=== PATIENT | male | born 1935 | race Caucasian/White ===

== ENCOUNTER 2018-06-08 07:55 | Inpatient (IN) | payer MEDICARE, BC ==
[~2018-06-08] VITALS: Ht 190.5 cm; Wt 97.0 kg
[~2018-06-08 07:55] MED LIST: ALLO100 PO; ASPI325 PO; Aspirin EC81 MG PO; CLOP75 PO; LEVFLO500 PO; METO50 PO; MUPI2TO TOP; Omeprazole20 M1 PO; SULTRIDS PO; VERA240ER PO; VERAPAMIL SR240 MG PO
[2018-06-08] MEDS ORDERED: METO25 PO (09:00)
[2018-06-08 09:21] LABS: Alanine Aminotransfer (ALT/SGP 40 U/L (12-78); Albumin, Blood 2.9 g/dL (3.4-5.0); Albumin/Globulin Ratio 0.6 (0.8-1.8); Alk Phos 219 U/L (50-136); Anion Gap 7 mmol/L (6-16); Aspartate Aminotrans (AST/SGOT 47 U/L (12-37); Bilirubin, Total 1.7 mg/dL (0.1-1.0); Blood Urea Nitrogen 10 mg/dL (8-24); Bun/Creatinine Ratio 13.8 (12.0-20.0); CO2, Blood 27 mmol/L (21-32); Calcium, Blood 8.8 mg/dL (8.5-10.1); Chloride, Blood 96 mmol/L (98-108); Creatinine, Blood 0.72 mg/dL (0.60-1.20); Globulin, Blood 5.1 g/dL (2.2-4.0); Glomerular Filtration Rate >60 (60-); Glucose, Blood 89 mg/dL (70-99); Potassium, Blood 4.3 mmol/L (3.5-5.5); Sodium, Blood 130 mmol/L (136-145)
[2018-06-08 09:38] LABS: BASOPHILS ABSOLUTE AUTO 0.03 K/mm3 (0.00-0.23); BASOPHILS PERCENT AUTO 1 % (0-2); EOSINOPHILS ABSOLUTE AUTO 0.03 K/mm3 (0.00-0.68); EOSINOPHILS PERCENT AUTO 1 % (0-6); Hematocrit 39.6 % (37.0-53.0); Hemoglobin 13.5 g/dL (13.5-17.5); IMMATURE GRAN ABSOLUTE AUTO 0.02 K/mm3 (0.00-0.10); IMMATURE GRAN PERCENT AUTO 0 % (0-1); LYMPHOCYTES ABSOLUTE AUTO 0.75 K/mm3 (0.84-5.20); LYMPHOCYTES PERCENT AUTO 14 % (21-46); MONOCYTES ABSOLUTE AUTO 0.85 K/mm3 (0.16-1.47); MONOCYTES PERCENT AUTO 16 % (4-13); Mean Corpuscular HGB 34.2 pg (26.0-34.0); Mean Corpuscular HGB Conc 34.1 g/dL (31.5-36.5); Mean Corpuscular Volume 100 fL (80-100); Mean Platelet Volume 8.7 fL (9.1-12.4); NEUTROPHILS ABSOLUTE AUTO 3.76 K/mm3 (1.96-9.15); NEUTROPHILS PERCENT AUTO 69 % (41-73); Platelet Count 150 K/mm3 (150-400); RDW Coefficient Variation 13.5 % (11.7-14.2); RDW Standard Deviation 50.3 fL (35.1-46.3); Red Blood Cell Count 3.95 M/mm3 (4.30-5.90); White Blood Cell Count 5.44 K/mm3 (4.00-11.30)
[2018-06-08 15:27] LABS: Source, Urine Catheter
[2018-06-08 15:54] LABS: Bilirubin, Urine Neg (Neg); Blood, Urine 4+ (Neg); Glucose Qualitative, Urine Neg (Neg); Ketones, Urine Neg (Neg); Leukocyte Esterase, Urine 3+ (Neg); Nitrite, Urine Neg (Neg); Protein, Urine 2+ (Neg); Urobilinogen, Urine 3+ (Normal)
[2018-06-08 15:55] LABS: Appearance, Urine Cloudy (Clear); Color, Urine Yellow (P-Yellow)
[2018-06-08 15:56] LABS: White Blood Cells, Urine TNTC /hpf (0-5)
[2018-06-08 15:57] LABS: Bacteria Few /hpf; Squamous Epithelial Cells Few /hpf (Few); Transitional Epithelial Cells Few /hpf (0-Rare)
[2018-06-08 17:27] LABS: Source, Urine Catheter
[2018-06-08 18:23] LABS: Appearance, Urine Clear (Clear); Bilirubin, Urine Neg (Neg); Blood, Urine 3+ (Neg); Color, Urine Yellow (P-Yellow); Glucose Qualitative, Urine Neg (Neg); Ketones, Urine Neg (Neg); Leukocyte Esterase, Urine 3+ (Neg); Nitrite, Urine Neg (Neg); Protein, Urine 1+ (Neg); Urobilinogen, Urine 2+ (Normal)
[2018-06-08 18:40] LABS: White Blood Cells, Urine 25-50 /hpf (0-5)
[2018-06-08 18:41] LABS: Bacteria Rare /hpf; Squamous Epithelial Cells Rare /hpf (Few)
[2018-06-09 05:48] LABS: Hematocrit 35.6 % (37.0-53.0); Hemoglobin 11.8 g/dL (13.5-17.5); Mean Corpuscular HGB 33.4 pg (26.0-34.0); Mean Corpuscular HGB Conc 33.1 g/dL (31.5-36.5); Mean Corpuscular Volume 101 fL (80-100); Platelet Count 141 K/mm3 (150-400); RDW Coefficient Variation 14.2 % (11.7-14.2); RDW Standard Deviation 51.8 fL (35.1-46.3); Red Blood Cell Count 3.53 M/mm3 (4.30-5.90); White Blood Cell Count 4.89 K/mm3 (4.00-11.30)
[2018-06-09 07:48] LABS: Alanine Aminotransfer (ALT/SGP 28 U/L (12-78); Albumin, Blood 2.3 g/dL (3.4-5.0); Albumin/Globulin Ratio 0.5 (0.8-1.8); Alk Phos 177 U/L (50-136); Anion Gap 6 mmol/L (6-16); Aspartate Aminotrans (AST/SGOT 35 U/L (12-37); Bilirubin, Direct 0.5 mg/dL (0.0-0.3); Bilirubin, Indirect 0.5 mg/dL (0.1-0.7); Blood Urea Nitrogen 10 mg/dL (8-24); CO2, Blood 27 mmol/L (21-32); Calcium, Blood 7.9 mg/dL (8.5-10.1); Chloride, Blood 100 mmol/L (98-108); Creatinine, Blood 0.72 mg/dL (0.60-1.20); Globulin, Blood 4.2 g/dL (2.2-4.0); Glomerular Filtration Rate >60 (60-); Glucose, Blood 120 mg/dL (70-99); Potassium, Blood 3.9 mmol/L (3.5-5.5); Sodium, Blood 133 mmol/L (136-145); Total Protein, Blood 6.5 g/dL (6.4-8.2)
[2018-06-09] MEDS ORDERED: PROB500 PO (13:33)
[2018-06-10 05:42] LABS: Hematocrit 37.8 % (37.0-53.0); Hemoglobin 12.4 g/dL (13.5-17.5); Mean Corpuscular HGB 33.2 pg (26.0-34.0); Mean Corpuscular HGB Conc 32.8 g/dL (31.5-36.5); Mean Corpuscular Volume 101 fL (80-100); Mean Platelet Volume 8.9 fL (9.1-12.4); Platelet Count 150 K/mm3 (150-400); RDW Coefficient Variation 14.1 % (11.7-14.2); Red Blood Cell Count 3.73 M/mm3 (4.30-5.90)
[2018-06-10 05:59] LABS: Anion Gap 7 mmol/L (6-16); Blood Urea Nitrogen 13 mg/dL (8-24); CO2, Blood 25 mmol/L (21-32); Chloride, Blood 99 mmol/L (98-108); Creatinine, Blood 0.72 mg/dL (0.60-1.20); Glomerular Filtration Rate >60 (60-); Glucose, Blood 97 mg/dL (70-99); Potassium, Blood 4.6 mmol/L (3.5-5.5); Sodium, Blood 131 mmol/L (136-145); Vancomycin, Trough 15.9 ug/mL (5.0-10.0)
[2018-06-11 05:46] LABS: BASOPHILS ABSOLUTE AUTO 0.03 K/mm3 (0.00-0.23); BASOPHILS PERCENT AUTO 1 % (0-2); EOSINOPHILS PERCENT AUTO 4 % (0-6); Hematocrit 38.2 % (37.0-53.0); Hemoglobin 12.9 g/dL (13.5-17.5); IMMATURE GRAN ABSOLUTE AUTO 0.02 K/mm3 (0.00-0.10); IMMATURE GRAN PERCENT AUTO 0 % (0-1); LYMPHOCYTES ABSOLUTE AUTO 1.44 K/mm3 (0.84-5.20); LYMPHOCYTES PERCENT AUTO 30 % (21-46); MONOCYTES ABSOLUTE AUTO 0.81 K/mm3 (0.16-1.47); MONOCYTES PERCENT AUTO 17 % (4-13); Mean Corpuscular HGB 33.4 pg (26.0-34.0); Mean Corpuscular HGB Conc 33.8 g/dL (31.5-36.5); Mean Corpuscular Volume 99 fL (80-100); Mean Platelet Volume 9.1 fL (9.1-12.4); NEUTROPHILS ABSOLUTE AUTO 2.27 K/mm3 (1.96-9.15); NEUTROPHILS PERCENT AUTO 48 % (41-73); Platelet Count 156 K/mm3 (150-400); RDW Coefficient Variation 13.8 % (11.7-14.2); RDW Standard Deviation 49.9 fL (35.1-46.3); Red Blood Cell Count 3.86 M/mm3 (4.30-5.90); White Blood Cell Count 4.77 K/mm3 (4.00-11.30)
[2018-06-12 05:48] LABS: BASOPHILS ABSOLUTE AUTO 0.02 K/mm3 (0.00-0.23); BASOPHILS PERCENT AUTO 0 % (0-2); EOSINOPHILS ABSOLUTE AUTO 0.26 K/mm3 (0.00-0.68); EOSINOPHILS PERCENT AUTO 5 % (0-6); Hematocrit 37.7 % (37.0-53.0); Hemoglobin 12.7 g/dL (13.5-17.5); IMMATURE GRAN ABSOLUTE AUTO 0.01 K/mm3 (0.00-0.10); IMMATURE GRAN PERCENT AUTO 0 % (0-1); LYMPHOCYTES ABSOLUTE AUTO 1.62 K/mm3 (0.84-5.20); LYMPHOCYTES PERCENT AUTO 30 % (21-46); MONOCYTES ABSOLUTE AUTO 0.76 K/mm3 (0.16-1.47); MONOCYTES PERCENT AUTO 14 % (4-13); Mean Corpuscular HGB 33.1 pg (26.0-34.0); Mean Corpuscular HGB Conc 33.7 g/dL (31.5-36.5); Mean Corpuscular Volume 98 fL (80-100); Mean Platelet Volume 8.9 fL (9.1-12.4); NEUTROPHILS ABSOLUTE AUTO 2.66 K/mm3 (1.96-9.15); NEUTROPHILS PERCENT AUTO 50 % (41-73); Platelet Count 165 K/mm3 (150-400); RDW Coefficient Variation 13.5 % (11.7-14.2); RDW Standard Deviation 48.8 fL (35.1-46.3); Red Blood Cell Count 3.84 M/mm3 (4.30-5.90); White Blood Cell Count 5.33 K/mm3 (4.00-11.30)
[2018-06-12 06:25] LABS: Vancomycin, Trough 23.8 ug/mL (5.0-10.0)
[2018-06-12 15:26] LABS: Vancomycin, Trough 16.6 ug/mL (5.0-10.0)
[2018-06-13 05:59] LABS: BASOPHILS ABSOLUTE AUTO 0.03 K/mm3 (0.00-0.23); BASOPHILS PERCENT AUTO 1 % (0-2); EOSINOPHILS ABSOLUTE AUTO 0.43 K/mm3 (0.00-0.68); EOSINOPHILS PERCENT AUTO 9 % (0-6); Hematocrit 37.5 % (37.0-53.0); Hemoglobin 12.8 g/dL (13.5-17.5); IMMATURE GRAN ABSOLUTE AUTO 0.02 K/mm3 (0.00-0.10); IMMATURE GRAN PERCENT AUTO 0 % (0-1); LYMPHOCYTES ABSOLUTE AUTO 1.73 K/mm3 (0.84-5.20); LYMPHOCYTES PERCENT AUTO 36 % (21-46); MONOCYTES ABSOLUTE AUTO 0.74 K/mm3 (0.16-1.47); MONOCYTES PERCENT AUTO 15 % (4-13); Mean Corpuscular HGB 33.2 pg (26.0-34.0); Mean Corpuscular HGB Conc 34.1 g/dL (31.5-36.5); Mean Corpuscular Volume 97 fL (80-100); Mean Platelet Volume 8.9 fL (9.1-12.4); NEUTROPHILS ABSOLUTE AUTO 1.92 K/mm3 (1.96-9.15); NEUTROPHILS PERCENT AUTO 40 % (41-73); Platelet Count 169 K/mm3 (150-400); RDW Coefficient Variation 13.3 % (11.7-14.2); RDW Standard Deviation 47.8 fL (35.1-46.3); Red Blood Cell Count 3.85 M/mm3 (4.30-5.90); White Blood Cell Count 4.87 K/mm3 (4.00-11.30)
[2018-06-13 06:21] LABS: Anion Gap 6 mmol/L (6-16); Blood Urea Nitrogen 13 mg/dL (8-24); Bun/Creatinine Ratio 19.4 (12.0-20.0); CO2, Blood 30 mmol/L (21-32); Calcium, Blood 8.3 mg/dL (8.5-10.1); Chloride, Blood 93 mmol/L (98-108); Creatinine, Blood 0.67 mg/dL (0.60-1.20); Glomerular Filtration Rate >60 (60-); Glucose, Blood 82 mg/dL (70-99); Potassium, Blood 4.2 mmol/L (3.5-5.5); Sodium, Blood 129 mmol/L (136-145)
[2018-06-14 05:47] LABS: BASOPHILS ABSOLUTE AUTO 0.03 K/mm3 (0.00-0.23); BASOPHILS PERCENT AUTO 1 % (0-2); EOSINOPHILS ABSOLUTE AUTO 0.43 K/mm3 (0.00-0.68); EOSINOPHILS PERCENT AUTO 8 % (0-6); Hematocrit 39.1 % (37.0-53.0); IMMATURE GRAN ABSOLUTE AUTO 0.02 K/mm3 (0.00-0.10); IMMATURE GRAN PERCENT AUTO 0 % (0-1); LYMPHOCYTES ABSOLUTE AUTO 1.45 K/mm3 (0.84-5.20); LYMPHOCYTES PERCENT AUTO 26 % (21-46); MONOCYTES ABSOLUTE AUTO 0.87 K/mm3 (0.16-1.47); MONOCYTES PERCENT AUTO 15 % (4-13); Mean Corpuscular HGB 33.9 pg (26.0-34.0); Mean Corpuscular HGB Conc 33.2 g/dL (31.5-36.5); Mean Platelet Volume 8.9 fL (9.1-12.4); NEUTROPHILS ABSOLUTE AUTO 2.87 K/mm3 (1.96-9.15); NEUTROPHILS PERCENT AUTO 51 % (41-73); Platelet Count 165 K/mm3 (150-400); RDW Coefficient Variation 13.2 % (11.7-14.2); RDW Standard Deviation 49.9 fL (35.1-46.3); Red Blood Cell Count 3.84 M/mm3 (4.30-5.90); White Blood Cell Count 5.67 K/mm3 (4.00-11.30)
[2018-06-14 05:48] LABS: Mean Corpuscular Volume 102 fL (80-100)
[2018-06-14 06:08] LABS: Anion Gap 6 mmol/L (6-16); Blood Urea Nitrogen 16 mg/dL (8-24); Bun/Creatinine Ratio 16.7 (12.0-20.0); CO2, Blood 31 mmol/L (21-32); Calcium, Blood 8.7 mg/dL (8.5-10.1); Chloride, Blood 93 mmol/L (98-108); Creatinine, Blood 0.96 mg/dL (0.60-1.20); Glomerular Filtration Rate >60 (60-); Glucose, Blood 78 mg/dL (70-99); Potassium, Blood 4.3 mmol/L (3.5-5.5); Sodium, Blood 130 mmol/L (136-145)
[2018-06-14 14:12] LABS: CPK Creatine Kinase 55 U/L (39-308); Creatine Kinase MB 1.3 ng/mL (0.0-3.6); Creatine Kinase MB Index 2.4 (0.0-4.0); Troponin I <0.015 ng/mL (0.000-0.040)
[2018-06-14 15:57] LABS: Vancomycin, Trough 7.8 ug/mL (5.0-10.0)
[2018-06-15 04:47] LABS: BASOPHILS ABSOLUTE AUTO 0.04 K/mm3 (0.00-0.23); BASOPHILS PERCENT AUTO 1 % (0-2); EOSINOPHILS ABSOLUTE AUTO 0.35 K/mm3 (0.00-0.68); EOSINOPHILS PERCENT AUTO 7 % (0-6); Hemoglobin 12.5 g/dL (13.5-17.5); IMMATURE GRAN ABSOLUTE AUTO 0.03 K/mm3 (0.00-0.10); IMMATURE GRAN PERCENT AUTO 1 % (0-1); LYMPHOCYTES ABSOLUTE AUTO 1.62 K/mm3 (0.84-5.20); LYMPHOCYTES PERCENT AUTO 33 % (21-46); MONOCYTES ABSOLUTE AUTO 0.71 K/mm3 (0.16-1.47); MONOCYTES PERCENT AUTO 14 % (4-13); Mean Corpuscular HGB 33.5 pg (26.0-34.0); Mean Corpuscular HGB Conc 33.8 g/dL (31.5-36.5); Mean Platelet Volume 8.9 fL (9.1-12.4); NEUTROPHILS ABSOLUTE AUTO 2.23 K/mm3 (1.96-9.15); NEUTROPHILS PERCENT AUTO 45 % (41-73); Platelet Count 162 K/mm3 (150-400); RDW Coefficient Variation 13.3 % (11.7-14.2); RDW Standard Deviation 48.4 fL (35.1-46.3); Red Blood Cell Count 3.73 M/mm3 (4.30-5.90); White Blood Cell Count 4.98 K/mm3 (4.00-11.30)
[2018-06-15 04:48] LABS: Mean Corpuscular Volume 99 fL (80-100)
[2018-06-15 18:17] LABS: Albumin, Blood 2.2 g/dL (3.4-5.0); Anion Gap 3 mmol/L (6-16); Blood Urea Nitrogen 16 mg/dL (8-24); Bun/Creatinine Ratio 17.6 (12.0-20.0); CO2, Blood 29 mmol/L (21-32); Calcium, Blood 8.6 mg/dL (8.5-10.1); Chloride, Blood 97 mmol/L (98-108); Creatinine, Blood 0.91 mg/dL (0.60-1.20); Glomerular Filtration Rate >60 (60-); Glucose, Blood 86 mg/dL (70-99); Phosphorus, Blood 3.4 mg/dL (2.5-4.9); Potassium, Blood 4.6 mmol/L (3.5-5.5); Sodium, Blood 129 mmol/L (136-145)
[2018-06-16 05:00] LABS: Hematocrit 37.4 % (37.0-53.0); Hemoglobin 12.7 g/dL (13.5-17.5); Mean Corpuscular HGB 33.7 pg (26.0-34.0); Mean Corpuscular Volume 99 fL (80-100); Mean Platelet Volume 8.9 fL (9.1-12.4); Platelet Count 183 K/mm3 (150-400); RDW Coefficient Variation 13.2 % (11.7-14.2); RDW Standard Deviation 48.9 fL (35.1-46.3); Red Blood Cell Count 3.77 M/mm3 (4.30-5.90); White Blood Cell Count 4.59 K/mm3 (4.00-11.30)
[2018-06-16 05:21] LABS: Albumin, Blood 2.2 g/dL (3.4-5.0); Anion Gap 7 mmol/L (6-16); Blood Urea Nitrogen 16 mg/dL (8-24); Bun/Creatinine Ratio 17.2 (12.0-20.0); CO2, Blood 28 mmol/L (21-32); Calcium, Blood 8.3 mg/dL (8.5-10.1); Chloride, Blood 98 mmol/L (98-108); Creatinine, Blood 0.93 mg/dL (0.60-1.20); Glomerular Filtration Rate >60 (60-); Glucose, Blood 92 mg/dL (70-99); Phosphorus, Blood 3.6 mg/dL (2.5-4.9); Potassium, Blood 4.5 mmol/L (3.5-5.5); Sodium, Blood 133 mmol/L (136-145)
[2018-06-16] MEDS ORDERED: ACET325 PO (12:07)
[2018-06-16] MEDS ORDERED: DOCU100 PO (12:09)
[2018-06-16] MEDS ORDERED: ALBU2.5V5 NEB (12:09)
[2018-06-16] MEDS ORDERED: CEPH500 PO (12:09)
[2018-06-16] MEDS ORDERED: GABA100 PO (12:10)
[2018-06-16] MEDS ORDERED: FURO20 PO (12:10)
[2018-06-16] MEDS ORDERED: NITR.4SL SL (12:11)
[2018-06-16] MEDS ORDERED: Bactrim Ds Tab1 EACH PO (12:11)
[2018-06-16] MEDS ORDERED: TIOT18 INH (12:11)
[2018-06-16] MEDS ORDERED: TRAM50 PO (12:12)
[2018-06-16] MEDS ORDERED: SACC250C PO (12:12)
[2018-06-16] MEDS ORDERED: Micro-K10 MEQ PO (12:13)
== END 2018-06-16 16:30 | DRG 592 ==
LOC: ER 07:55 → MEDS 07:56
PROVIDERS: Emergency Medicine; Family Medicine; Internal Medicine
DX: L97.829 Non-pressure chronic ulcer of other part of left lower leg with unspecified severity (principal); I50.33 Acute on chronic diastolic (congestive) heart failure; J18.9 Pneumonia, unspecified organism; E87.1 Hypo-osmolality and hyponatremia; I73.9 Peripheral vascular disease, unspecified; L97.819 Non-pressure chronic ulcer of other part of right lower leg with unspecified severity; I48.0 Paroxysmal atrial fibrillation; K22.2 Esophageal obstruction; I10 Essential (primary) hypertension; M10.9 Gout, unspecified; J44.9 Chronic obstructive pulmonary disease, unspecified; R33.9 Retention of urine, unspecified; I11.0 Hypertensive heart disease with heart failure; Z87.891 Personal history of nicotine dependence; L97.529 Non-pressure chronic ulcer of other part of left foot with unspecified severity; L97.519 Non-pressure chronic ulcer of other part of right foot with unspecified severity; N40.1 Benign prostatic hyperplasia with lower urinary tract symptoms; R33.8 Other retention of urine
CPT/HCPCS: 36415; 71046; 73630; 80048; 80053; 80069; 80076; 80202; 81001; 82550; 82553; 83605; 83735; 83880; 84484; 85025; 85027; 85651; 87040; 87070; 87075; 87077; 87086; 87147; 87186; 87205; 93005; 93010; 93306; 93922; 94640; 94760; 96365; 97116; 97162; 97166; 97530; 97535; 99285-25; G0378; G8978; G8979; G8987; G8988; J0690; J0692; J1650; J1940; J3370; J7050

== ENCOUNTER 2018-10-01 22:29 | Inpatient (IN) | payer MEDICARE, BC ==
[~2018-10-01] VITALS: Ht 190.5 cm; Wt 99.2 kg
[~2018-10-01 22:29] MED LIST changes: +ACET325 PO; +ALBU2.5V5 NEB; +Bactrim Ds Tab1 EACH PO; +CEPH500 PO; +DOCU100 PO; +FURO20 PO; +GABA100 PO; +METO25 PO; +Micro-K10 MEQ PO; +NITR.4SL SL; +PROB500 PO; +SACC250C PO; +TIOT18 INH; +TRAM50 PO
[2018-10-02 01:11] LABS: BASOPHILS ABSOLUTE AUTO 0.03 K/mm3 (0.00-0.23); BASOPHILS PERCENT AUTO 1 % (0-2); EOSINOPHILS ABSOLUTE AUTO 0.14 K/mm3 (0.00-0.68); EOSINOPHILS PERCENT AUTO 3 % (0-6); Hematocrit 38.2 % (37.0-53.0); Hemoglobin 12.7 g/dL (13.5-17.5); IMMATURE GRAN ABSOLUTE AUTO 0.02 K/mm3 (0.00-0.10); IMMATURE GRAN PERCENT AUTO 0 % (0-1); LYMPHOCYTES ABSOLUTE AUTO 1.48 K/mm3 (0.84-5.20); LYMPHOCYTES PERCENT AUTO 33 % (21-46); MONOCYTES ABSOLUTE AUTO 0.52 K/mm3 (0.16-1.47); MONOCYTES PERCENT AUTO 12 % (4-13); Mean Corpuscular HGB 34.6 pg (26.0-34.0); Mean Corpuscular HGB Conc 33.2 g/dL (31.5-36.5); Mean Corpuscular Volume 104 fL (80-100); NEUTROPHILS ABSOLUTE AUTO 2.35 K/mm3 (1.96-9.15); NEUTROPHILS PERCENT AUTO 52 % (41-73); Platelet Count 121 K/mm3 (150-400); RDW Coefficient Variation 14.6 % (11.7-14.2); RDW Standard Deviation 56.9 fL (35.1-46.3); Red Blood Cell Count 3.67 M/mm3 (4.30-5.90); White Blood Cell Count 4.54 K/mm3 (4.00-11.30)
[2018-10-02 01:26] LABS: International Normalized Ratio 1.08; Prothrombin Time Results 11.4 Sec (9.7-11.5)
[2018-10-02 01:36] LABS: Alanine Aminotransfer (ALT/SGP 31 U/L (12-78); Albumin, Blood 3.1 g/dL (3.4-5.0); Albumin/Globulin Ratio 0.8 (0.8-1.8); Alk Phos 192 U/L (50-136); Anion Gap 10 mmol/L (6-16); Aspartate Aminotrans (AST/SGOT 33 U/L (12-37); Bilirubin, Total 0.7 mg/dL (0.1-1.0); Blood Urea Nitrogen 14 mg/dL (8-24); Bun/Creatinine Ratio 16.9 (12.0-20.0); CO2, Blood 28 mmol/L (21-32); Calcium, Blood 8.1 mg/dL (8.5-10.1); Chloride, Blood 97 mmol/L (98-108); Creatinine, Blood 0.83 mg/dL (0.60-1.20); Globulin, Blood 4.1 g/dL (2.2-4.0); Glomerular Filtration Rate >60 (60-); Glucose, Blood 85 mg/dL (70-99); Potassium, Blood 3.7 mmol/L (3.5-5.5); Sodium, Blood 135 mmol/L (136-145); Total Protein, Blood 7.2 g/dL (6.4-8.2); Troponin I <0.015 ng/mL (0.000-0.040)
[2018-10-02 05:05] LABS: Hematocrit 35.7 % (37.0-53.0); Hemoglobin 11.9 g/dL (13.5-17.5); Mean Corpuscular HGB 34.1 pg (26.0-34.0); Mean Corpuscular HGB Conc 33.3 g/dL (31.5-36.5); Mean Corpuscular Volume 102 fL (80-100); Mean Platelet Volume 8.8 fL (9.1-12.4); Platelet Count 111 K/mm3 (150-400); RDW Coefficient Variation 14.5 % (11.7-14.2); RDW Standard Deviation 54.9 fL (35.1-46.3); Red Blood Cell Count 3.49 M/mm3 (4.30-5.90); White Blood Cell Count 3.75 K/mm3 (4.00-11.30)
[2018-10-02 05:51] LABS: Alanine Aminotransfer (ALT/SGP 27 U/L (12-78); Albumin, Blood 2.8 g/dL (3.4-5.0); Albumin/Globulin Ratio 0.8 (0.8-1.8); Alk Phos 173 U/L (50-136); Anion Gap 10 mmol/L (6-16); Aspartate Aminotrans (AST/SGOT 36 U/L (12-37); Bilirubin, Total 0.7 mg/dL (0.1-1.0); Blood Urea Nitrogen 13 mg/dL (8-24); Bun/Creatinine Ratio 16.4 (12.0-20.0); CO2, Blood 26 mmol/L (21-32); Calcium, Blood 8.1 mg/dL (8.5-10.1); Chloride, Blood 97 mmol/L (98-108); Creatinine, Blood 0.79 mg/dL (0.60-1.20); Globulin, Blood 3.7 g/dL (2.2-4.0); Glomerular Filtration Rate >60 (60-); Glucose, Blood 119 mg/dL (70-99); Potassium, Blood 3.6 mmol/L (3.5-5.5); Sodium, Blood 133 mmol/L (136-145); Total Protein, Blood 6.5 g/dL (6.4-8.2)
--- NOTE | 2018-10-02 07:27 | NUR ---
a+o but new [place], call light in reach, saline locked, room air, walking report provided to day staff
--- NOTE | 2018-10-02 13:37 | NUR ---
ASSUMED CARE: PT SITTING UPRIGHT IN BED. STATES LEFT ARM PAINFUL. MEDICATED FOR PAIN. SPOKE WITH DR FIGUEROA ABOUT PAIN MEDS DUE TO NEEDING FENTANYL AROUND THE CLOCK. PT CURRENTLY WITH IMAGING. NO FURTHER NEEDS OR CONCERNS NOTED
--- NOTE | 2018-10-02 17:52 | NUR ---
SHIFT SUMMARY: PT RESTING QUIETLY IN BED. MEDICATED TWICE FOR PAIN. PLAN FOR SURGERY TOMORROW. WIRE GALVANIZER AWARE. NPO AT MIDNIGHT. NO FURTHER NEEDS OR CONCERNS AT THIS TIME
[2018-10-03 05:04] LABS: Hematocrit 34.9 % (37.0-53.0); Hemoglobin 11.7 g/dL (13.5-17.5); Mean Corpuscular HGB 33.6 pg (26.0-34.0); Mean Corpuscular HGB Conc 33.5 g/dL (31.5-36.5); Mean Corpuscular Volume 100 fL (80-100); Mean Platelet Volume 9.3 fL (9.1-12.4); Platelet Count 116 K/mm3 (150-400); RDW Coefficient Variation 14.5 % (11.7-14.2); RDW Standard Deviation 53.8 fL (35.1-46.3); Red Blood Cell Count 3.48 M/mm3 (4.30-5.90); White Blood Cell Count 4.12 K/mm3 (4.00-11.30)
[2018-10-03 05:21] LABS: Albumin, Blood 2.6 g/dL (3.4-5.0); Anion Gap 6 mmol/L (6-16); Blood Urea Nitrogen 19 mg/dL (8-24); Bun/Creatinine Ratio 18.8 (12.0-20.0); CO2, Blood 29 mmol/L (21-32); Calcium, Blood 8.4 mg/dL (8.5-10.1); Chloride, Blood 99 mmol/L (98-108); Creatinine, Blood 1.01 mg/dL (0.60-1.20); Glomerular Filtration Rate >60 (60-); Glucose, Blood 92 mg/dL (70-99); Phosphorus, Blood 4.1 mg/dL (2.5-4.9); Potassium, Blood 4.3 mmol/L (3.5-5.5); Sodium, Blood 134 mmol/L (136-145)
--- NOTE | 2018-10-03 06:33 | NUR ---
*SHIFT SUMMARY* PATIENT IS ALERT AND ORIENTED. PATIENT IS SCHEDULED TO HAVE SURGERY AT 0800. PATIENT HAS BEEN NPO SINCE 0000. PATIENT'S LAWRENCE WAS FROM HOME. THIS RN INSERTED A NEW LAWRENCE PER HOSPITAL POLICY, UA SENT TO LAB. PATIENT HAS SPLINT TO LEFT ARM. PATIENTS PAIN IS MANAGED WELL WITH MEDICATION SEE EMAR. NO NEW CHANGES TO CURRENT STATUS. CALL LIGHT WITHIN REACH, BED LOWERED AND LOCKED.
[2018-10-03 12:32] LABS: Source, Urine Catheter
[2018-10-03 12:50] LABS: Bilirubin, Urine Neg (Neg); Blood, Urine 4+ (Neg); Glucose Qualitative, Urine Neg (Neg); Ketones, Urine Neg (Neg); Leukocyte Esterase, Urine 3+ (Neg); Nitrite, Urine Neg (Neg); Protein, Urine 1+ (Neg); Urobilinogen, Urine 1+ (Normal)
[2018-10-03 12:53] LABS: Appearance, Urine Hazy (Clear); Color, Urine Yellow (P-Yellow)
--- NOTE | 2018-10-03 13:08 | NUR ---
OR NURSE IN TO SERVICE GREETER PATIENT SHORTLY AFTER NURSE RECIEVED REPORT. REPORT GIVEN TO SURGICAL FLOOR NURSE AT 1258. PT'S CAREGIVER EVGENY CLAY EXPRESSED CONCERN TO NURSE THAT SHE CANNOT ADEQUATELY CARE FOR PATIENT POST DISCHARGE.
[2018-10-03 13:12] LABS: White Blood Cells, Urine TNTC /hpf (0-5)
[2018-10-03 13:13] LABS: Bacteria Few /hpf; Squamous Epithelial Cells Few /hpf (Few); Transitional Epithelial Cells Few /hpf (0-Rare)
[2018-10-03 13:14] LABS: Renal Epithelial Rare /hpf (0-Rare)
--- NOTE | 2018-10-03 18:14 | NUR ---
SHIFT SUMMARY A&OX4, VSS, POD#0 L ORIF DISTAL HUMERUS, AQUACEL CDI, MIN SWELLING HAND. PAIN MANAGED PER EMAR. MOI PO, DENIES N&V. SAT IN CHAIR FOR 4 HOURS. 2 PP MAX ASSIST BACK TO BED. CHRONIC LAWRENCE CATHETER, CHANGED UPON ADMITTANCE AND UA SENT. WILL CTM & TX PER EMAR UNTIL REPORT GIVEN TO ONCOMING NOC RN.
[2018-10-04 04:19] LABS: Hematocrit 34.2 % (37.0-53.0); Hemoglobin 11.5 g/dL (13.5-17.5); Mean Corpuscular HGB 34.1 pg (26.0-34.0); Mean Corpuscular HGB Conc 33.6 g/dL (31.5-36.5); Mean Corpuscular Volume 102 fL (80-100); Mean Platelet Volume 9.3 fL (9.1-12.4); Platelet Count 112 K/mm3 (150-400); RDW Coefficient Variation 14.3 % (11.7-14.2); RDW Standard Deviation 53.8 fL (35.1-46.3); Red Blood Cell Count 3.37 M/mm3 (4.30-5.90); White Blood Cell Count 6.74 K/mm3 (4.00-11.30)
--- NOTE | 2018-10-04 05:10 | NUR ---
SHIFT SUMMARY PT A&O X4 T/O SHIFT. POD#1 ORIF R ELBOW; AQUCEL DRESSING TO L ELBOW CDI; SWELLING AND BUISING TO LUE; LUE ELEVATED AND ICE TO SITE PT TOLERATED; BILAT HANDS PINK, WARM AND DRY. PT EDUCATED ON NWB STATUS OF LUE. RA; MOIST, PRODUCTIVE COUGH NOTED. SLIGHT WHEEZE THIS AM, PT DENIED NEED FOR RT TX. PT STS HE MAKES ADJUSTMENTS TO BODY POSITION WHILE IN BED; PW PREVENTION DISCUSSED. BLE ELEVATED. PPPX4. CATHETER DRAINING WELL; STAT-LOCK IN PLACE. CALL LIGHT IN REACH; PT DEMONSTRATES USE. SIDE RAILS X3 FOR SAFETY. WCTM UNTIL REPORT TO DAY SHIFT RN.
--- NOTE | 2018-10-04 09:53 | NUR ---
[place] IN TO SEE PT RECENTLY. DISCUSSED PLAN OF CARE. AZ PLACED [place] WRAP TO L ARM. DR MOTRATE BEEN TO SEE PT WELL. SEE ORDERS.
--- NOTE | 2018-10-04 15:02 | NUR ---
DRESSING CHANGED WITH ASSIST FROM OTHER RN S.W.. PT TRANSFERRED TO CHAIR WITH ASSIST. CALL LIGHT IN REACH.
--- NOTE | 2018-10-04 16:36 | NUR ---
SHIFT SUMMARY PT EATING AND DRINKING. PT BEEN ASSISTED WITH ADL'S PRN. PT HAS HAD L ARM ELEVATED, REFUSING ICE TO ARM. PT L ARM IN [place] WRAP, CAP REFILL BRISK. PT HAD DRESSINGS TO BLE CHANGED TODAY WITH ASSIST FROM OTHER RN. PT UP TO CHAIR EARLIER TODAY. PT USING CALL LIGHT APPR. DISCUSSED BOWEL CARE WITH PT.
--- NOTE | 2018-10-05 04:19 | NUR ---
SUMMARY: PT POD2 NO ACUTE CHANGE OVERNIGHT. PT HAS BEEN SOMEWHAT IRRITABLE WITH CARE GIVEN AND HAS NEEDED CONVINCING THAT CARE IS NEEDED. PT RESISANT TO TURNING AT FIRST, THEN COMPLIED. SURGICAL SITE WNL, ELEVATED, GOOD CSM. REDNESS NOTED ON PT COCCYX, MEPILEX PLACED. CHRONIC LAWRENCE DRAINING. VSS, ENCOURAGED COUGH, DEEP BREATHE. MEDICATED FOR PAIN PRN, SEE EMAR. PLAN IS TO DC WITH HOME HEALTH. NO SAFETY CONCERNS AT THIS TIME.
[2018-10-05 05:13] LABS: BASOPHILS ABSOLUTE AUTO 0.02 K/mm3 (0.00-0.23); BASOPHILS PERCENT AUTO 0 % (0-2); EOSINOPHILS ABSOLUTE AUTO 0.07 K/mm3 (0.00-0.68); EOSINOPHILS PERCENT AUTO 1 % (0-6); Hematocrit 34.2 % (37.0-53.0); Hemoglobin 11.3 g/dL (13.5-17.5); IMMATURE GRAN ABSOLUTE AUTO 0.02 K/mm3 (0.00-0.10); IMMATURE GRAN PERCENT AUTO 0 % (0-1); LYMPHOCYTES ABSOLUTE AUTO 1.59 K/mm3 (0.84-5.20); LYMPHOCYTES PERCENT AUTO 31 % (21-46); MONOCYTES ABSOLUTE AUTO 0.69 K/mm3 (0.16-1.47); MONOCYTES PERCENT AUTO 14 % (4-13); Mean Corpuscular HGB 33.8 pg (26.0-34.0); Mean Corpuscular Volume 102 fL (80-100); Mean Platelet Volume 9.5 fL (9.1-12.4); NEUTROPHILS ABSOLUTE AUTO 2.74 K/mm3 (1.96-9.15); NEUTROPHILS PERCENT AUTO 53 % (41-73); Platelet Count 123 K/mm3 (150-400); RDW Coefficient Variation 14.4 % (11.7-14.2); RDW Standard Deviation 54.4 fL (35.1-46.3); Red Blood Cell Count 3.34 M/mm3 (4.30-5.90); White Blood Cell Count 5.13 K/mm3 (4.00-11.30)
[2018-10-05 05:44] LABS: Albumin, Blood 2.5 g/dL (3.4-5.0); Anion Gap 7 mmol/L (6-16); Blood Urea Nitrogen 25 mg/dL (8-24); Bun/Creatinine Ratio 25.4 (12.0-20.0); CO2, Blood 28 mmol/L (21-32); Calcium, Blood 8.4 mg/dL (8.5-10.1); Chloride, Blood 100 mmol/L (98-108); Creatinine, Blood 0.98 mg/dL (0.60-1.20); Glomerular Filtration Rate >60 (60-); Glucose, Blood 79 mg/dL (70-99); Phosphorus, Blood 3.5 mg/dL (2.5-4.9); Potassium, Blood 4.4 mmol/L (3.5-5.5); Sodium, Blood 135 mmol/L (136-145)
--- NOTE | 2018-10-06 04:35 | NUR ---
SHIFT SUMMARY PT IS POD 3 ORIF OF L DISTAL HUMERUS. HE IS NWB TO [place], FOLLOWING PRECAUTIONS. PT HAS CHRONIC PVD AND ALL HIS EXTREMITIES ARE COOL AND PALE. CHRONIC WOUNDS TO BILAT FEET REDRESSED YESTERDAY. LAWRENCE IN PLACE FOR RETENTION, PATENT AND DRAINING. 2 ASSIST UP W/ GB AND FWW FOR SAFETY. PT IS A&O, ABLE TO MAKE NEEDS KNOWN. HIS LUNGS ARE COARSE BUT HE REFUSES TO USE THE IS, EVEN WITH REPEAT TEACHING. HE HAS A MOIST COUGH. WILL CTM UNTIL PASS TO NEXT SHIFT.
[2018-10-06 05:48] LABS: Hemoglobin 11.3 g/dL (13.5-17.5); Mean Corpuscular HGB Conc 33.2 g/dL (31.5-36.5); Mean Corpuscular Volume 102 fL (80-100); Mean Platelet Volume 9.4 fL (9.1-12.4); Platelet Count 126 K/mm3 (150-400); RDW Coefficient Variation 14.3 % (11.7-14.2); RDW Standard Deviation 54.1 fL (35.1-46.3); Red Blood Cell Count 3.32 M/mm3 (4.30-5.90); White Blood Cell Count 4.68 K/mm3 (4.00-11.30)
--- NOTE | 2018-10-06 14:45 | NUR ---
10/06/18 1445 Maria Luz Fonseca VERIFICATIONS: EDIT CHART.
--- NOTE | 2018-10-06 19:48 | NUR ---
SHIFT SUMMARY PAIN HAS BEEN MANAGED WITH PO PAIN MEDICATION THIS SHIFT. PT IS A 2 ASSIST WHEN OOB. PLAN FOR POSSIBLE DISCHARGE WHEN VA WHEN BED IS AVALIABLE. VSS. REPORT GIVEN TO ONCOMING RN.
--- NOTE | 2018-10-07 06:29 | NUR ---
LYING IN HIGH FOWLERS WITH EYES CLOSED. PAIN IS MANAGED WITH CURRENT PAIN REGIEMEN. REPOSITIONED Q2HRS AND NEEDED FOR COMFORT, TOLERATING WELL. NO FURTHER CHANGES SINCE START OF SHIFT. SAFETY MEASURES IN PLACE. WILL GIVE HAND OFF TO ONCOMING SHIFT USING SBAR.
--- NOTE | 2018-10-07 07:05 | NUR ---
recvd report from previous shift rn Danielle, pt sleeping in bed, bed in lowest position, call light within reach
--- NOTE | 2018-10-07 10:30 | NUR ---
PT/OT WORKING WITH PATIENT
--- NOTE | 2018-10-07 15:45 | NUR ---
PT REPORTS HE IS UNHAPPY WITH THE LEVEL OF NURSING CARE HE HAS RECEIVED, STATES HE FEELS HE HAS BEEN IGNORED AND THIS RN HAS NOT BEEN IN HIS ROOM ENOUGH TO "KNOW WHAT HE NEEDS". REPORTED TO FOOD SERVICE CASHIER AND CLINICAL COORDINATOR PT'S CONCERN. REPOSITIONED PT, TRANSFERRED HIM TO BED WITH TWO PERSON MAX ASSIST
--- NOTE | 2018-10-07 15:51 | NUR ---
Spiritual care visit conducted. Patient was sitting up in bed and alert when I entered the room. I introduced myself and explained what department I was from. Patient was hesitant to have a visit from a can sealer but was quick to warm up and therapeutic alliance was established. Patient had a main concern of wanting to go to the [facility] than [facility] and then beyond that was concerned that he would be able to return home at all. I listened empathically, I conducted a life review, explored patient's belief system, discussed sources of purpose and meaning and normalized his experience. Patient responded well to interventions and showed signs catharsis.
--- NOTE | 2018-10-07 18:20 | NUR ---
SHIFT SUMMARY: VSS, NO ACUTE CHANGES, PT WORKED WITH PT/OT TODAY, UP IN CHAIR FOR 3 HRS. REQUESTED TO GO BACK TO BED. FOLLOWING ENCOURAGEMENT TO HAVE MEALS (APPROX 1550) IN CHAIR, PT REFUSES TO EAT IN CHAIR, CLAIMS HE WILL GET HIMSELF BACK TO BED, RAISED VOICE AT THIS RN. THIS RN INFORMED PT WE REQUIRE 2 PEOPLE FOR TRANSFER, REQUESTED ASSISTANCE FROM HOSPITAL CARRIER, WHO WILL COME TO ROOM FOLLOWING COMPLETION OF CURRENT TASK. PT AGAIN CLAIMS HE WILL TRANSFER HIMSELF, AT WHICH TIME THIS RN REQUESTED AGAIN HE WAIT FOR ANOTHER MESSAGE BROKER DEVELOPER TO TRANSFER. PT APPEARED UNHAPPY WITH RESPONSE, TOLD THIS RN TO "GET OUT OF MY FACE LADY" WITH RAISED VOICE. DRESSING CHANGE X 1 THIS THIS. NO N/V, MEDICATED FOR PAIN X 1 PER PT'S REQUEST, PT RECEIVED IV ABX. PT WITH >500 ML OUT LAWRENCE CATHETER, DARK YELLOW URINE.
--- NOTE | 2018-10-08 04:32 | NUR ---
SUMMARY NO ACUTE CHANGES NOTED FROM ASSESSMENT. PT HAS SLEPT THROUGH THE NIGHT. PAIN MANAGED WITH PO OXYCODONE. LAWRENCE REMAINS PATENT, OFF FLOOR, URINE OUTPUT WNL. PT IS REFUSING Q2 TURNS, HEELS ARE FLOATED OFF THE BED. VSS, CALL LIGHT IN REACH, WCTM
[2018-10-08 09:32] LABS: BASOPHILS ABSOLUTE AUTO 0.03 K/mm3 (0.00-0.23); BASOPHILS PERCENT AUTO 0 % (0-2); EOSINOPHILS PERCENT AUTO 4 % (0-6); Hematocrit 38.6 % (37.0-53.0); Hemoglobin 12.7 g/dL (13.5-17.5); IMMATURE GRAN ABSOLUTE AUTO 0.03 K/mm3 (0.00-0.10); IMMATURE GRAN PERCENT AUTO 0 % (0-1); LYMPHOCYTES ABSOLUTE AUTO 1.81 K/mm3 (0.84-5.20); LYMPHOCYTES PERCENT AUTO 26 % (21-46); MONOCYTES ABSOLUTE AUTO 0.74 K/mm3 (0.16-1.47); MONOCYTES PERCENT AUTO 11 % (4-13); Mean Corpuscular HGB 34.3 pg (26.0-34.0); Mean Corpuscular HGB Conc 32.9 g/dL (31.5-36.5); Mean Corpuscular Volume 104 fL (80-100); Mean Platelet Volume 8.6 fL (9.1-12.4); NEUTROPHILS ABSOLUTE AUTO 4.04 K/mm3 (1.96-9.15); NEUTROPHILS PERCENT AUTO 58 % (41-73); Platelet Count 163 K/mm3 (150-400); RDW Standard Deviation 53.7 fL (35.1-46.3); White Blood Cell Count 6.95 K/mm3 (4.00-11.30)
[2018-10-08 09:57] LABS: Albumin, Blood 2.8 g/dL (3.4-5.0); Anion Gap 7 mmol/L (6-16); Blood Urea Nitrogen 22 mg/dL (8-24); Bun/Creatinine Ratio 21.4 (12.0-20.0); CO2, Blood 28 mmol/L (21-32); Calcium, Blood 8.5 mg/dL (8.5-10.1); Chloride, Blood 102 mmol/L (98-108); Creatinine, Blood 1.03 mg/dL (0.60-1.20); Glomerular Filtration Rate >60 (60-); Glucose, Blood 102 mg/dL (70-99); Phosphorus, Blood 3.3 mg/dL (2.5-4.9); Potassium, Blood 4.2 mmol/L (3.5-5.5); Sodium, Blood 137 mmol/L (136-145)
--- NOTE | 2018-10-08 11:27 | NUR ---
Spiritual care visit conducted. Patient was sitting in a chair and alert when I entered the room. Because therapeutic allinace was established from a prior visit, patient shared about his family, fears and vasiliy. I listened empathically, normalized his experience, explored sources of meaning and dignity and provided companionship and emotional support. Patient voiced his gratitude for the visit and showed signs of an elevated mood.
--- NOTE | 2018-10-08 18:02 | NUR ---
SHIFT SUMMARY PATIENT W/O C/O TODAY AFTER BRONCHOSCOPY. SWALLOWING W/O DIFFICULTY. UP TO CHAIR. DRESSING D&I. CIRC CHECKS WNL. VISITORS IN TO SEE TODAY. PATIENT STATES PAIN WELL CONTROLLED WITH PO MEDS. NO ACUTE CHANGES.
--- NOTE | 2018-10-08 19:12 | NUR ---
SHIFT SUMMARY PATIENT STATES PAIN CONTROLLED WITH PO PAIN MEDS. DRESSING D&I. MOVES ARMS. TAKING PO W/O C/O. BILAT FOOT DRESSINGS CHANGED, NO S/SX INFECTION NOTED. LOTION TO DRY FLAKY LE'S APPLIED. HEELS FLOATED. NO C/O AT THIS TIME.
[2018-10-09 05:30] LABS: Hematocrit 33.5 % (37.0-53.0); Mean Corpuscular HGB 33.7 pg (26.0-34.0); Mean Corpuscular HGB Conc 32.8 g/dL (31.5-36.5); Mean Corpuscular Volume 103 fL (80-100); Platelet Count 135 K/mm3 (150-400); RDW Coefficient Variation 13.9 % (11.7-14.2); RDW Standard Deviation 52.7 fL (35.1-46.3); Red Blood Cell Count 3.26 M/mm3 (4.30-5.90); White Blood Cell Count 5.06 K/mm3 (4.00-11.30)
--- NOTE | 2018-10-09 07:30 | NUR ---
SHIFT SUMMARY PT A&O X4 T/O SHIFT. [place]. POD#6 ORIF L ARM; DRESSING OVER L ELBOW CDI, SWELLING TO LUE NOTED, CAP REFILL SLIGHTLY LESS THAN RUE, PT DENIES CHANGES IN BASELINE N/T; DEMONSTRATES LUE ROM. PT DECLINED ELEVATION OF LUE MUCH OF SHIFT AND REFUSED [place] WRAP TO LUE DESPITE EDUCATION AND PT VERBALIZING UNDERSTANDING OF INTERVENTIONS TO DECREASE SWELLING. PAIN MANGED PER EMAR. PT REPOSITIONED PT ALLOWED, PT STS UNDERSTANDING OF PRESSURE WOUND PREVENTION BUT STS HE DOES NOT WANT REPOSITIONED. DRESSINGS TO BLE CDI; ELEVATED BLE. RA; PT DECLINED BREATHING TREATMENTS SEVERAL TIMES, COUGH NOTED, EXP WHEEZE BILAT, DIM IN BILAT BASES, PT DENIED SOB T/O SHIFT. ENCOURAGED TO USE I/S. SIDE RAILS X3 AND BED ALARM FOR SAFETY. PORFIRIO/CATH CARE BY MULE RIDER, CHRONIC CATHETER. CALL LIGHT IN REACH; PT DEMONSTRATES USE. REPORT GIVEN TO DAY SHIFT RN.
--- NOTE | 2018-10-09 16:32 | NUR ---
PATIENT D/C'D TO [facility] AT 1610. REPORT CALLED TO PEÑA MCNEIL. NO ACUTE CHANGES THIS SHIFT. FOOT DRESSINGS REINFORCED BEFORE D/C. CIRC CHECKS TO REMI ANDERSON, SOME SWELLING PATIENT HAS REFUSED [place] WRAP.
[2018-10-10] MEDS ORDERED: ASCO500 PO (10:29)
[2018-10-10] MEDS ORDERED: Ferrous Sulfat325 M2 PO (10:30)
[2018-10-10] MEDS ORDERED: SACC250C (10:31)
[2018-10-10] MEDS ORDERED: LEVO750 PO (10:32)
[2018-10-10] MEDS ORDERED: OXYC5 (10:33)
[2018-10-10] MEDS ORDERED: ONDA4ODT MM (10:34)
== END 2018-10-09 16:00 | DRG 493 ==
LOC: ER 22:29 → SURS 22:30 → MEDS 22:30 → SURS 10-03 10:40
PROVIDERS: Emergency Medicine; Family Medicine; ADMIT Internal Medicine
PROC: 0PSG04Z Reposition Left Humeral Shaft with Internal Fixation Device, Open Approach (ICD-10-PCS; principal; 2018-10-06)
DX: S42.352A Displaced comminuted fracture of shaft of humerus, left arm, initial encounter for closed fracture (principal); T83.511A Infection and inflammatory reaction due to indwelling urethral catheter, initial encounter; N39.0 Urinary tract infection, site not specified; I10 Essential (primary) hypertension; I48.91 Unspecified atrial fibrillation; I73.9 Peripheral vascular disease, unspecified; W19.XXXA Unspecified fall, initial encounter; J44.9 Chronic obstructive pulmonary disease, unspecified; Z79.01 Long term (current) use of anticoagulants; K59.00 Constipation, unspecified; M10.9 Gout, unspecified; Z66 Do not resuscitate; D64.9 Anemia, unspecified
CPT/HCPCS: 29105; 36415; 70450; 73070; 73200; 80053; 80069; 81001; 83735; 84484; 85025; 85027; 85610; 93005; 93010; 94640; 94760; 96372; 96375; 96376; 97110; 97162; 97167; 97530; 97535; 99285-25; C1713; G0378; J0690; J1100; J1650; J1956; J2405; J3010; J7030

== ENCOUNTER 2018-10-10 10:15 | Emergency (ER) | payer MEDICARE, BC ==
[~2018-10-10] VITALS: Ht 190.5 cm; Wt 97.5 kg
[2018-10-10] MEDS ORDERED: ASCO500 PO (10:29)
[2018-10-10] MEDS ORDERED: Ferrous Sulfat325 M2 PO (10:30)
[2018-10-10] MEDS ORDERED: SACC250C (10:31)
[2018-10-10] MEDS ORDERED: LEVO750 PO (10:32)
[2018-10-10] MEDS ORDERED: OXYC5 (10:33)
[2018-10-10] MEDS ORDERED: ONDA4ODT MM (10:34)
== END 2018-10-10 19:56 | disposition home or self-care (01) ==
LOC: ER 10:15
DX: S42.412A Displaced simple supracondylar fracture without intercondylar fracture of left humerus, initial encounter for closed fracture (principal); X58.XXXA Exposure to other specified factors, initial encounter; Z88.0 Allergy status to penicillin; Z79.899 Other long term (current) drug therapy; Z79.82 Long term (current) use of aspirin; I10 Essential (primary) hypertension; Z87.891 Personal history of nicotine dependence
CPT/HCPCS: 29105; 73060; 73080; 96374-59; 96375-59; 99283-25; J1170; J2405

== ENCOUNTER → 2019-01-08 | Outpatient (CLI) | payer MEDICARE, BC ==
[~2019-01-08] MED LIST changes: +ASCO500 PO; +Ferrous Sulfat325 M2 PO; +LEVO750 PO; +ONDA4ODT MM; +OXYC5; +SACC250C
[2019-01-08 15:01] LABS: Source, Urine Catheter
[2019-01-08 15:12] LABS: Blood, Urine 5+ (Neg); Glucose Qualitative, Urine Neg (Neg); Ketones, Urine Neg (Neg); Leukocyte Esterase, Urine 3+ (Neg); Nitrite, Urine Neg (Neg); Protein, Urine 3+ (Neg); Specific Gravity, Urine 1.025 (1.003-1.022); Urobilinogen, Urine 4+ (Normal)
[2019-01-08 15:18] LABS: Appearance, Urine Cloudy (Clear); Bilirubin, Urine 2+ (Neg); Color, Urine Yellow (P-Yellow)
[2019-01-08 15:19] LABS: Red Blood Cells, Urine TNTC /hpf (0-2); White Blood Cells, Urine TNTC /hpf (0-5)
[2019-01-08 15:21] LABS: Bacteria Mod /hpf; Squamous Epithelial Cells Few /hpf (Few); Transitional Epithelial Cells Few /hpf (0-Rare)
== END | disposition home or self-care (01) ==
LOC: LAB SHORT 14:58 → LAB 14:58
DX: I48.0 Paroxysmal atrial fibrillation (principal); I10 Essential (primary) hypertension; L97.312 Non-pressure chronic ulcer of right ankle with fat layer exposed
CPT/HCPCS: 81001; 87077; 87086; 87186